=== PATIENT | male | born 1975 | race Two or more races ===

== ENCOUNTER 2016-08-19 10:37 | Emergency (ER) | payer BC ==
[2016-08-19] MEDS ORDERED: ASPIRIN 81 MG CHEWABLE TABLET PO ONE (11:03)
--- NOTE | 2016-08-19 11:10 | Emergency Department Record ---
History of Present Illness - General Chief Complaint: Chest Pain Stated Complaint: DIZZINESS,CHEST PAIN Time Seen by Provider: 08/19/16 10:49 Source: Patient Mode of Arrival: Ambulatory Limitations: No limitations - History of Present Illness Initial Comments: pt states he' just doesnt feel right'.he went to work this am and was lightheaded, felt off balance and had intermittant chest pressure that would last seconds MD Complaint: Chest pain Onset/Timin -: Week(s) Pain Location: Left chest Pain Radiation: None Quality: Heaviness, Other Consistency: Intermittent Improves With: Nothing Worsens With: Nothing Anginal Symptoms: Other Other Symptoms: Other Treatments Prior to Arrival: None - Related Data Home Medications Medication Instructions Recorded Confirmed Last Taken Metoprolol Tartrate [Lopressor] 50 mg PO DAILY 01/03/15 08/19/16 08/18/16 Pantoprazole Sodium [Protonix] 40 mg PO DAILY 01/03/15 08/19/16 08/18/16 Lisinopril [Lisinopril] 10 mg PO DAILY 08/19/16 08/19/16 08/18/16 Allergies Allergy/AdvReac Type Severity Reaction Status Date / Time No Known Drug Allergies Allergy Verified 08/19/16 10:50 Travel Screening - Travel/Exposure Within Last 30 Days Have you traveled within the last 30 days?: No Review of Systems Reviewed: No additional complaints except as noted below Constitutional: Reports: As per HPI. Denies: Chills, Fever, Malaise, Night sweats, Weakness, Weight change Eyes: Reports: As per HPI. Denies: Eye discharge, Eye pain, Photophobia, Vision change ENT: Reports: As per HPI. Denies: Congestion, Dental pain, Ear pain, Epistaxis , Hearing loss, Throat pain Respiratory: Reports: As per HPI. Denies: Cough, Dyspnea, Hemoptysis, Stridor, Wheezes Cardiovascular: Reports: As per HPI. Denies: Arrhythmia, Chest pain, Dyspnea on exertion, Edema, Murmurs, Orthopnea, Palpitations, Paroxysmal nocturnal dyspnea, Rheumatic Fever, Syncope Endocrine: Reports: As per HPI. Denies: Fatigue, Heat or cold intolerance, Polydipsia, Polyuria Gastrointestinal: Reports: As per HPI. Denies: Abdominal pain, Constipation, Diarrhea, Hematemesis, Hematochezia, Melena, Nausea, Vomiting Genitourinary: Reports: As per HPI. Denies: Dysuria, Frequency, Hematuria, Incontinence, Retention, Testicular pain, Testicular mass, Urgency Musculoskeletal: Reports: As per HPI. Denies: Arthralgia, Back pain, Gout, Joint swelling, Myalgia, Neck pain Skin: Reports: As per HPI. Denies: Bruising, Change in color, Change in hair/ nails, Lesions, Pruritus, Rash Neurological: Reports: As per HPI. Denies: Abnormal gait, Confusion, Headache, Numbness, Paresthesias, Seizure, Tingling, Tremors, Vertigo, Weakness Psychiatric: Reports: As per HPI. Denies: Anxiety, Auditory hallucinations, Depression, Homicidal thoughts, Suicidal thoughts, Visual hallucinations Hematological/Lymphatic: Reports: As per HPI. Denies: Anemia, Blood Clots, Easy bleeding, Easy bruising, Swollen glands Past Medical History - SOCIAL HISTORY Smoking Status: Never smoker Alcohol Use: Occassional Drug Use: None - RESPIRATORY Hx Respiratory Disorders: Yes Hx Sleep Apnea: Yes Hx of CPAP: Yes - CARDIOVASCULAR Hx Cardio Disorders: Yes Hx Hypertension: Yes Comment:: murmur - NEURO Hx Neuro Disorders: No - GI Hx GI Disorders: Yes Hx Reflux: Yes - Hx Genitourinary Disorders: No - ENDOCRINE Hx Endocrine Disorders: No - MUSCULOSKELETAL Hx Musculoskeletal Disorders: No - PSYCH Hx Psych Problems: No - HEMATOLOGY/ONCOLOGY Hx Hematology/Oncology Disorders: No Family Medical History Any Significant Family History?: Yes Hx Cancer: Mother Hx Diabetes: Father Hx Heart Disease: Mother, Grandparents Physical Exam - General General Appearance: Alert, Oriented x3, Cooperative, Mild distress - Head Head exam: Normal inspection - Eye Eye exam: Normal appearance, PERRL, EOMI Pupils: Normal accommodation - ENT ENT exam: Normal exam, Mucous membranes moist, Normal external ear exam, Normal orophraynx Ear exam: Normal external inspection. negative: External canal tenderness Nasal Exam: Normal inspection. negative: Discharge, Sinus tenderness Mouth exam: Normal external inspection, Tongue normal Teeth exam: Normal inspection. negative: Dental caries Throat exam: Normal inspection. negative: Tonsillar erythema, Tonsillar exudate - Neck Neck exam: Normal inspection, Full ROM. negative: Tenderness - Respiratory Respiratory exam: Normal lung sounds bilaterally. negative: Respiratory distress - Cardiovascular Cardiovascular Exam: Regular rate, Normal rhythm, Normal heart sounds - GI/Abdominal GI/Abdominal exam: Soft, Normal bowel sounds. negative: Tenderness - Rectal Rectal exam: Deferred - exam: Deferred - Extremities Extremities exam: Normal inspection, Full ROM, Normal capillary refill. negative: Tenderness - Back Back exam: Reports: Normal inspection, Full ROM. Denies: Muscle spasm, Rash noted, Tenderness - Neurological Neurological exam: Alert, CN II-XII intact, Normal gait, Oriented X3 - Psychiatric Psychiatric exam: Normal affect, Normal mood - Skin Skin exam: Dry, Intact, Normal color, Warm Course Vital Signs 08/19/16 10:42 Temperature 98.3 F Pulse Rate 71 Respiratory 20 Rate Blood Pressure 137/91 Pulse Ox 98 - Reevaluation(s) Reevaluation #1: 08/19/16 15:19 pt had no furthe chest discomfort. pelvis ct showed no fluid collection and only cellulitis. abscess has been and is still draining on its own. foot xray shows no fb and also shows cellulitis Medical Decision Making - Lab Data Result diagrams: 08/19/16 10:55 08/19/16 10:55 Disposition Disposition: Discharge Clinical Impression: Groin abscess, Cellulitis of foot excluding toe, Renal insufficiency Chest pain Qualifiers: Chest pain type: other chest pain Qualified Code(s): R07.89 - Other chest pain ; R07.8 - Other chest pain Disposition: Home, Self-Care Condition: (1) Good Instructions: Chest Pain (ED), Abscess (ED), Cellulitis (ED), Diabetic Kidney Disease (ED) Additional Instructions: recheck tomorrow. return sooner if worse. follow up with dr whitt on sunday regarding foot without fail. moist heat intermittantly. follow up with family doctor on sunday Forms: Patient Portal Access
[2016-08-19 11:14] LABS: BASO % 0.3 % (0-6); EOS % 0.5 % (0-6); GRAN % 63.9 % (47-80); HEMATOCRIT 43.6 % (42.0-52.0); MEAN CORPUSCULAR HEMOGLOBIN 27.3 pg (27-33); MEAN CORPUSCULAR HGB CONC 32.1 g/dl (32-36); MEAN PLATELET VOLUME 11.6 fl (7.4-10.4); MONO % 10.3 % (0-9); PLATELET COUNT 255 K/uL (130-400); RED BLOOD COUNT 5.13 M/uL (4.40-5.70); RED CELL DISTRIBUTION WIDTH 13.7 % (11.5-14.5); WHITE BLOOD COUNT W/O DIFF 6.6 K/uL (4.2-12.2)
[2016-08-19 11:25] LABS: ANION GAP 11.2 (7-16); BLOOD UREA NITROGEN 14 mg/dL (9-20); CARBON DIOXIDE 27.8 mmol/L (22-30); CREATINE PHOSPHOKINASE 172 U/L (55-170); CREATININE 0.9 mg/dL (0.66-1.25); EST GLOMERULAR FILTRATION RATE > 60 ml/min; GLUCOSE,RANDOM 112 mg/dL (70-110)
[2016-08-19 11:37] LABS: CKMB 2.6 ug/L (0-6)
[2016-08-19 11:43] LABS: TROPONIN I < 0.012 ng/mL (0.00-0.034)
[2016-08-19 14:38] LABS: URINE APPEARANCE CLEAR; URINE BILIRUBIN NEGATIVE (NEGATIVE); URINE BLOOD NEGATIVE (NEGATIVE); URINE COLOR YELLOW; URINE GLUCOSE (UA) NEGATIVE (NEGATIVE); URINE KETONE NEGATIVE (NEGATIVE); URINE LEUKOCYTE ESTERASE NEGATIVE (NEGATIVE); URINE NITRITE NEGATIVE (NEGATIVE); URINE PROTEIN NEGATIVE (NEGATIVE); URINE UROBILINOGEN 0.2 E.U./dL (0.20 - 1.00)
[2016-08-19 15:01] LABS: CKMB 2.3 ug/L (0-6)
[2016-08-19 15:02] LABS: TROPONIN I < 0.012 ng/mL (0.00-0.034)
--- NOTE | 2016-08-19 15:25 | Emergency Department Record ---
History of Present Illness - General Chief Complaint: Chest Pain Stated Complaint: DIZZINESS,CHEST PAIN Time Seen by Provider: 08/19/16 10:49 Source: Patient Mode of Arrival: Ambulatory Limitations: No limitations - History of Present Illness Onset/Timin -: Week(s) Pain Location: Left chest Pain Radiation: None Quality: Heaviness, Other Consistency: Intermittent Improves With: Nothing Worsens With: Nothing Anginal Symptoms: Other Other Symptoms: Other Treatments Prior to Arrival: None - Related Data Home Medications Medication Instructions Recorded Confirmed Last Taken Metoprolol Tartrate [Lopressor] 50 mg PO DAILY 01/03/15 08/19/16 08/18/16 Pantoprazole Sodium [Protonix] 40 mg PO DAILY 01/03/15 08/19/16 08/18/16 Lisinopril [Lisinopril] 10 mg PO DAILY 08/19/16 08/19/16 08/18/16 Previous Rx's Medication Instructions Recorded Amoxicillin/Potassium Clav 1 tab PO BID #20 tab 08/19/16 [Augmentin 875-125 Tablet] Allergies Allergy/AdvReac Type Severity Reaction Status Date / Time No Known Drug Allergies Allergy Verified 08/19/16 10:50 Travel Screening - Travel/Exposure Within Last 30 Days Have you traveled within the last 30 days?: No Review of Systems Constitutional: Reports: As per HPI. Denies: Chills, Fever, Malaise, Night sweats, Weakness, Weight change Eyes: Reports: As per HPI. Denies: Eye discharge, Eye pain, Photophobia, Vision change ENT: Reports: As per HPI. Denies: Congestion, Dental pain, Ear pain, Epistaxis , Hearing loss, Throat pain Respiratory: Reports: As per HPI. Denies: Cough, Dyspnea, Hemoptysis, Stridor, Wheezes Cardiovascular: Reports: As per HPI. Denies: Arrhythmia, Chest pain, Dyspnea on exertion, Edema, Murmurs, Orthopnea, Palpitations, Paroxysmal nocturnal dyspnea, Rheumatic Fever, Syncope Endocrine: Reports: As per HPI. Denies: Fatigue, Heat or cold intolerance, Polydipsia, Polyuria Gastrointestinal: Reports: As per HPI. Denies: Abdominal pain, Constipation, Diarrhea, Hematemesis, Hematochezia, Melena, Nausea, Vomiting Genitourinary: Reports: As per HPI. Denies: Dysuria, Frequency, Hematuria, Incontinence, Retention, Testicular pain, Testicular mass, Urgency Musculoskeletal: Reports: As per HPI. Denies: Arthralgia, Back pain, Gout, Joint swelling, Myalgia, Neck pain Skin: Reports: As per HPI. Denies: Bruising, Change in color, Change in hair/ nails, Lesions, Pruritus, Rash Neurological: Reports: As per HPI. Denies: Abnormal gait, Confusion, Headache, Numbness, Paresthesias, Seizure, Tingling, Tremors, Vertigo, Weakness Psychiatric: Reports: As per HPI. Denies: Anxiety, Auditory hallucinations, Depression, Homicidal thoughts, Suicidal thoughts, Visual hallucinations Hematological/Lymphatic: Reports: As per HPI. Denies: Anemia, Blood Clots, Easy bleeding, Easy bruising, Swollen glands Past Medical History - SOCIAL HISTORY Smoking Status: Never smoker Alcohol Use: Occassional Drug Use: None - RESPIRATORY Hx Respiratory Disorders: Yes Hx Sleep Apnea: Yes Hx of CPAP: Yes - CARDIOVASCULAR Hx Cardio Disorders: Yes Hx Hypertension: Yes Comment:: murmur - NEURO Hx Neuro Disorders: No - GI Hx GI Disorders: Yes Hx Reflux: Yes - Hx Genitourinary Disorders: No - ENDOCRINE Hx Endocrine Disorders: No - MUSCULOSKELETAL Hx Musculoskeletal Disorders: No - PSYCH Hx Psych Problems: No - HEMATOLOGY/ONCOLOGY Hx Hematology/Oncology Disorders: No Family Medical History Any Significant Family History?: Yes Hx Cancer: Mother Hx Diabetes: Father Hx Heart Disease: Mother, Grandparents Physical Exam - General Limitations: No limitations Course Vital Signs 08/19/16 08/19/16 08/19/16 10:42 11:42 14:22 Temperature 98.3 F Pulse Rate 71 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 ] Respiratory 20 20 20 Rate Blood Pressure 137/91 Blood Pressure 102/79 113/77 [Right Arm] Pulse Ox 98 97 99 Medical Decision Making - Lab Data Result diagrams: 08/19/16 10:55 08/19/16 10:55 Lab Results 08/19/16 08/19/16 08/19/16 Range/Units 10:55 10:55 14:30 WBC 6.6 (4.2-12.2) K/uL RBC 5.13 (4.40-5.70) M/uL Hgb 14.0 (14.0-18.0) gm/dl Hct 43.6 (42.0-52.0) % MCV 85.0 (81-97) fl MCH 27.3 (27-33) pg MCHC 32.1 (32-36) g/dl RDW 13.7 (11.5-14.5) % Plt Count 255 (130-400) K/uL MPV 11.6 H (7.4-10.4) fl Gran % 63.9 (47-80) % Lymphocytes % 25.0 (16-45) % Monocytes % 10.3 H (0-9) % Eosinophils % 0.5 (0-6) % Basophils % 0.3 (0-6) % Sodium 140 (136-145) mmol/L Potassium 4.2 (3.5-5.1) mmol/L Chloride 101 (98-107) mmol/L Carbon Dioxide 27.8 (22-30) mmol/L Anion Gap 11.2 (7-16) BUN 14 (9-20) mg/dL Creatinine 0.9 (0.66-1.25) mg/dL Estimated GFR > 60 ml/min Random Glucose 112 H (70-110) mg/dL Calcium 9.3 (8.5-10.1) mg/dL Creatine Kinase 172 H (55-170) U/L CK-MB (CK-2) 2.6 (0-6) ug/L Troponin I < 0.012 (0.00-0.034) ng/mL Urine Color Yellow Urine Appearance Clear Urine pH 6.0 (5.0-8.0) Ur Specific [place] <= 1.005 (1.002-1.030) Urine Protein Negative (NEGATIVE) Urine Glucose (UA) Negative (NEGATIVE) Urine Ketones Negative (NEGATIVE) Urine Blood Negative (NEGATIVE) Urine Nitrite Negative (NEGATIVE) Urine Bilirubin Negative (NEGATIVE) Urine Urobilinogen 0.2 (0.20 - 1.00) E.U./dL Ur Leukocyte Esterase Negative (NEGATIVE) 08/19/16 Range/Units 14:30 WBC (4.2-12.2) K/uL RBC (4.40-5.70) M/uL Hgb (14.0-18.0) gm/dl Hct (42.0-52.0) % MCV (81-97) fl MCH (27-33) pg MCHC (32-36) g/dl RDW (11.5-14.5) % Plt Count (130-400) K/uL MPV (7.4-10.4) fl Gran % (47-80) % Lymphocytes % (16-45) % Monocytes % (0-9) % Eosinophils % (0-6) % Basophils % (0-6) % Sodium (136-145) mmol/L Potassium (3.5-5.1) mmol/L Chloride (98-107) mmol/L Carbon Dioxide (22-30) mmol/L Anion Gap (7-16) BUN (9-20) mg/dL Creatinine (0.66-1.25) mg/dL Estimated GFR ml/min Random Glucose (70-110) mg/dL Calcium (8.5-10.1) mg/dL Creatine Kinase (55-170) U/L CK-MB (CK-2) 2.3 (0-6) ug/L Troponin I < 0.012 (0.00-0.034) ng/mL Urine Color Urine Appearance Urine pH (5.0-8.0) Ur Specific [place] (1.002-1.030) Urine Protein (NEGATIVE) Urine Glucose (UA) (NEGATIVE) Urine Ketones (NEGATIVE) Urine Blood (NEGATIVE) Urine Nitrite (NEGATIVE) Urine Bilirubin (NEGATIVE) Urine Urobilinogen (0.20 - 1.00) E.U./dL Ur Leukocyte Esterase (NEGATIVE) Disposition Clinical Impression: Groin abscess, Cellulitis of foot excluding toe, Renal insufficiency Chest pain Qualifiers: Chest pain type: other chest pain Qualified Code(s): R07.89 - Other chest pain Disposition: Home, Self-Care Condition: (1) Good Instructions: Chest Pain (ED), Cellulitis (ED), Abscess (ED), Diabetic Kidney Disease (ED) Additional Instructions: recheck tomorrow. return sooner if worse. follow up with dr whitt on sunday regarding foot without fail. moist heat intermittantly. follow up with family doctor on sunday Prescriptions: Amoxicillin/Potassium Clav [Augmentin 875-125 Tablet] 1 tab PO BID #20 tab Forms: Patient Portal Access
--- NOTE | 2016-08-19 15:49 | Emergency Department Record ---
History of Present Illness - General Chief Complaint: Chest Pain Stated Complaint: DIZZINESS,CHEST PAIN Time Seen by Provider: 08/19/16 10:49 Source: Patient Mode of Arrival: Ambulatory Limitations: No limitations - History of Present Illness Initial Comments: intermittent bouts of chest pain and feeling funny in head. Complaint: Chest pain Onset/Timin -: Week(s) Pain Location: Left chest Pain Radiation: None Quality: Heaviness, Other Consistency: Intermittent Improves With: Nothing Worsens With: Nothing Anginal Symptoms: Other Other Symptoms: Other Treatments Prior to Arrival: None - Related Data Home Medications Medication Instructions Recorded Confirmed Last Taken Metoprolol Tartrate [Lopressor] 50 mg PO DAILY 01/03/15 08/19/16 08/18/16 Pantoprazole Sodium [Protonix] 40 mg PO DAILY 01/03/15 08/19/16 08/18/16 Lisinopril [Lisinopril] 10 mg PO DAILY 08/19/16 08/19/16 08/18/16 Allergies Allergy/AdvReac Type Severity Reaction Status Date / Time No Known Drug Allergies Allergy Verified 08/19/16 10:50 Travel Screening - Travel/Exposure Within Last 30 Days Have you traveled within the last 30 days?: No Review of Systems Constitutional: Reports: As per HPI. Denies: Chills, Fever, Malaise, Night sweats, Weakness, Weight change Eyes: Reports: As per HPI. Denies: Eye discharge, Eye pain, Photophobia, Vision change ENT: Reports: As per HPI. Denies: Congestion, Dental pain, Ear pain, Epistaxis , Hearing loss, Throat pain Respiratory: Reports: As per HPI. Denies: Cough, Dyspnea, Hemoptysis, Stridor, Wheezes Cardiovascular: Reports: As per HPI. Denies: Arrhythmia, Chest pain, Dyspnea on exertion, Edema, Murmurs, Orthopnea, Palpitations, Paroxysmal nocturnal dyspnea, Rheumatic Fever, Syncope Endocrine: Reports: As per HPI. Denies: Fatigue, Heat or cold intolerance, Polydipsia, Polyuria Gastrointestinal: Reports: As per HPI. Denies: Abdominal pain, Constipation, Diarrhea, Hematemesis, Hematochezia, Melena, Nausea, Vomiting Genitourinary: Reports: As per HPI. Denies: Dysuria, Frequency, Hematuria, Incontinence, Retention, Testicular pain, Testicular mass, Urgency Musculoskeletal: Reports: As per HPI. Denies: Arthralgia, Back pain, Gout, Joint swelling, Myalgia, Neck pain Skin: Reports: As per HPI. Denies: Bruising, Change in color, Change in hair/ nails, Lesions, Pruritus, Rash Neurological: Reports: As per HPI. Denies: Abnormal gait, Confusion, Headache, Numbness, Paresthesias, Seizure, Tingling, Tremors, Vertigo, Weakness Psychiatric: Reports: As per HPI. Denies: Anxiety, Auditory hallucinations, Depression, Homicidal thoughts, Suicidal thoughts, Visual hallucinations Hematological/Lymphatic: Reports: As per HPI. Denies: Anemia, Blood Clots, Easy bleeding, Easy bruising, Swollen glands Past Medical History - SOCIAL HISTORY Smoking Status: Never smoker Alcohol Use: Occassional Drug Use: None - RESPIRATORY Hx Respiratory Disorders: Yes Hx Sleep Apnea: Yes Hx of CPAP: Yes - CARDIOVASCULAR Hx Cardio Disorders: Yes Hx Hypertension: Yes Comment:: murmur - NEURO Hx Neuro Disorders: No - GI Hx GI Disorders: Yes Hx Reflux: Yes - Hx Genitourinary Disorders: No - ENDOCRINE Hx Endocrine Disorders: No - MUSCULOSKELETAL Hx Musculoskeletal Disorders: No - PSYCH Hx Psych Problems: No - HEMATOLOGY/ONCOLOGY Hx Hematology/Oncology Disorders: No Family Medical History Any Significant Family History?: Yes Hx Cancer: Mother Hx Diabetes: Father Hx Heart Disease: Mother, Grandparents Physical Exam - General General Appearance: Alert, Oriented x3, Cooperative, No acute distress Limitations: No limitations - Head Head exam: Normal inspection - Eye Eye exam: Normal appearance, PERRL Pupils: Normal accommodation - ENT ENT exam: Normal exam, Mucous membranes moist, Normal external ear exam, Normal orophraynx, TM's normal bilaterally Ear exam: Normal external inspection. negative: External canal tenderness Nasal Exam: Normal inspection. negative: Discharge, Sinus tenderness Mouth exam: Normal external inspection, Tongue normal Teeth exam: Normal inspection. negative: Dental caries Throat exam: Normal inspection. negative: Tonsillar erythema, Tonsillar exudate - Neck Neck exam: Normal inspection, Full ROM. negative: Tenderness - Respiratory Respiratory exam: Normal lung sounds bilaterally. negative: Respiratory distress - Cardiovascular Cardiovascular Exam: Regular rate, Normal rhythm, Normal heart sounds - GI/Abdominal GI/Abdominal exam: Soft, Normal bowel sounds. negative: Tenderness - Rectal Rectal exam: Deferred - exam: Deferred - Extremities Extremities exam: Normal inspection, Full ROM, Normal capillary refill. negative: Tenderness - Back Back exam: Reports: Normal inspection, Full ROM. 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 neg, cxr neg Medical Decision Making - Lab Data Result diagrams: 08/19/16 10:55 08/19/16 10:55 Lab Results 08/19/16 08/19/16 08/19/16 Range/Units 10:55 10:55 14:30 WBC 6.6 (4.2-12.2) K/uL RBC 5.13 (4.40-5.70) M/uL Hgb 14.0 (14.0-18.0) gm/dl Hct 43.6 (42.0-52.0) % MCV 85.0 (81-97) fl MCH 27.3 (27-33) pg MCHC 32.1 (32-36) g/dl RDW 13.7 (11.5-14.5) % Plt Count 255 (130-400) K/uL MPV 11.6 H (7.4-10.4) fl Gran % 63.9 (47-80) % Lymphocytes % 25.0 (16-45) % Monocytes % 10.3 H (0-9) % Eosinophils % 0.5 (0-6) % Basophils % 0.3 (0-6) % Sodium 140 (136-145) mmol/L Potassium 4.2 (3.5-5.1) mmol/L Chloride 101 (98-107) mmol/L Carbon Dioxide 27.8 (22-30) mmol/L Anion Gap 11.2 (7-16) BUN 14 (9-20) mg/dL Creatinine 0.9 (0.66-1.25) mg/dL Estimated GFR > 60 ml/min Random Glucose 112 H (70-110) mg/dL Calcium 9.3 (8.5-10.1) mg/dL Creatine Kinase 172 H (55-170) U/L CK-MB (CK-2) 2.6 (0-6) ug/L Troponin I < 0.012 (0.00-0.034) ng/mL Urine Color Yellow Urine Appearance Clear Urine pH 6.0 (5.0-8.0) Ur Specific [place] <= 1.005 (1.002-1.030) Urine Protein Negative (NEGATIVE) Urine Glucose (UA) Negative (NEGATIVE) Urine Ketones Negative (NEGATIVE) Urine Blood Negative (NEGATIVE) Urine Nitrite Negative (NEGATIVE) Urine Bilirubin Negative (NEGATIVE) Urine Urobilinogen 0.2 (0.20 - 1.00) E.U./dL Ur Leukocyte Esterase Negative (NEGATIVE) 08/19/16 Range/Units 14:30 WBC (4.2-12.2) K/uL RBC (4.40-5.70) M/uL Hgb (14.0-18.0) gm/dl Hct (42.0-52.0) % MCV (81-97) fl MCH (27-33) pg MCHC (32-36) g/dl RDW (11.5-14.5) % Plt Count (130-400) K/uL MPV (7.4-10.4) fl Gran % (47-80) % Lymphocytes % (16-45) % Monocytes % (0-9) % Eosinophils % (0-6) % Basophils % (0-6) % Sodium (136-145) mmol/L Potassium (3.5-5.1) mmol/L Chloride (98-107) mmol/L Carbon Dioxide (22-30) mmol/L Anion Gap (7-16) BUN (9-20) mg/dL Creatinine (0.66-1.25) mg/dL Estimated GFR ml/min Random Glucose (70-110) mg/dL Calcium (8.5-10.1) mg/dL Creatine Kinase (55-170) U/L CK-MB (CK-2) 2.3 (0-6) ug/L Troponin I < 0.012 (0.00-0.034) ng/mL Urine Color Urine Appearance Urine pH (5.0-8.0) Ur Specific [place] (1.002-1.030) Urine Protein (NEGATIVE) Urine Glucose (UA) (NEGATIVE) Urine Ketones (NEGATIVE) Urine Blood (NEGATIVE) Urine Nitrite (NEGATIVE) Urine Bilirubin (NEGATIVE) Urine Urobilinogen (0.20 - 1.00) E.U./dL Ur Leukocyte Esterase (NEGATIVE) Disposition Disposition: Discharge Clinical Impression: Chest pain Qualifiers: Chest pain type: other chest pain Qualified Code(s): R07.89 - Other chest pain Disposition: Home, Self-Care Condition: (1) Good Instructions: Chest Pain (ED) Additional Instructions: follow up with family doctor without fail on sunday for further workup. return sooner if worse. Forms: Patient Portal Access
--- NOTE | 2016-08-20 10:48 | CT SCAN REPORT ---
EXAM: CT SCAN HEAD WO CONTRAST HISTORY: BALANCE PROBLEMS FOR ONE WEEK. DIZZINESS. RIGHT HAND DOMINANCE. TECHNIQUE: Routine noncontrast CT examination of the head is performed. COMPARISON: None. FINDINGS: The ventricles and subarachnoid spaces are normal in size. No area of abnormally increased or decreased attenuation is noted throughout the brain substance. No abnormal extraaxial fluid collection is seen. No skull fracture is identified. The visualized paranasal sinuses and mastoid air-cells are clear. The middle ear cavities, to the extent visualized, are clear. The orbits, as visualized, are unremarkable. IMPRESSION: NEGATIVE NONCONTRAST CT APPEARANCE OF THE HEAD. JOB NUMBER: [id number] MTDD
--- NOTE | 2016-08-20 10:51 | RADIOLOGY REPORT ---
EXAM: CHEST 2 VIEWS HISTORY: LEFT-SIDED CHEST PAIN. TECHNIQUE: Upright PA and lateral views of the chest. COMPARISON: Two views of the chest dated 01/03/2015. FINDINGS: The cardiomediastinal silhouette is normal in size and configuration. The pulmonary vasculature is nondilated. The lungs and pleural spaces are clear. The osseous structures are intact. IMPRESSION: NEGATIVE CHEST. JOB NUMBER: [id number] MTDD
--- NOTE | 2016-08-21 19:16 | Emergency Department Record ---
History of Present Illness - General Chief Complaint: Chest Pain Stated Complaint: DIZZINESS,CHEST PAIN Time Seen by Provider: 08/19/16 10:49 Source: Patient Mode of Arrival: Ambulatory Limitations: No limitations - History of Present Illness Onset/Timin -: Week(s) Pain Location: Left chest Pain Radiation: None Quality: Heaviness, Other Consistency: Intermittent Improves With: Nothing Worsens With: Nothing Anginal Symptoms: Other Other Symptoms: Other Treatments Prior to Arrival: None - Related Data Home Medications Medication Instructions Recorded Confirmed Last Taken Metoprolol Tartrate [Lopressor] 50 mg PO DAILY 01/03/15 08/19/16 08/18/16 Pantoprazole Sodium [Protonix] 40 mg PO DAILY 01/03/15 08/19/16 08/18/16 Lisinopril [Lisinopril] 10 mg PO DAILY 08/19/16 08/19/16 08/18/16 Allergies Allergy/AdvReac Type Severity Reaction Status Date / Time No Known Drug Allergies Allergy Verified 08/19/16 10:50 Travel Screening - Travel/Exposure Within Last 30 Days Have you traveled within the last 30 days?: No Review of Systems Constitutional: Reports: As per HPI. Denies: Chills, Fever, Malaise, Night sweats, Weakness, Weight change Eyes: Reports: As per HPI. Denies: Eye discharge, Eye pain, Photophobia, Vision change ENT: Reports: As per HPI. Denies: Congestion, Dental pain, Ear pain, Epistaxis , Hearing loss, Throat pain Respiratory: Reports: As per HPI. Denies: Cough, Dyspnea, Hemoptysis, Stridor, Wheezes Cardiovascular: Reports: As per HPI. Denies: Arrhythmia, Chest pain, Dyspnea on exertion, Edema, Murmurs, Orthopnea, Palpitations, Paroxysmal nocturnal dyspnea, Rheumatic Fever, Syncope Endocrine: Reports: As per HPI. Denies: Fatigue, Heat or cold intolerance, Polydipsia, Polyuria Gastrointestinal: Reports: As per HPI. Denies: Abdominal pain, Constipation, Diarrhea, Hematemesis, Hematochezia, Melena, Nausea, Vomiting Genitourinary: Reports: As per HPI. Denies: Dysuria, Frequency, Hematuria, Incontinence, Retention, Testicular pain, Testicular mass, Urgency Musculoskeletal: Reports: As per HPI. Denies: Arthralgia, Back pain, Gout, Joint swelling, Myalgia, Neck pain Skin: Reports: As per HPI. Denies: Bruising, Change in color, Change in hair/ nails, Lesions, Pruritus, Rash Neurological: Reports: As per HPI. Denies: Abnormal gait, Confusion, Headache, Numbness, Paresthesias, Seizure, Tingling, Tremors, Vertigo, Weakness Psychiatric: Reports: As per HPI. Denies: Anxiety, Auditory hallucinations, Depression, Homicidal thoughts, Suicidal thoughts, Visual hallucinations Hematological/Lymphatic: Reports: As per HPI. Denies: Anemia, Blood Clots, Easy bleeding, Easy bruising, Swollen glands Past Medical History - SOCIAL HISTORY Smoking Status: Never smoker Alcohol Use: Occassional Drug Use: None - RESPIRATORY Hx Respiratory Disorders: Yes Hx Sleep Apnea: Yes Hx of CPAP: Yes - CARDIOVASCULAR Hx Cardio Disorders: Yes Hx Hypertension: Yes Comment:: murmur - NEURO Hx Neuro Disorders: No - GI Hx GI Disorders: Yes Hx Reflux: Yes - Hx Genitourinary Disorders: No - ENDOCRINE Hx Endocrine Disorders: No - MUSCULOSKELETAL Hx Musculoskeletal Disorders: No - PSYCH Hx Psych Problems: No - HEMATOLOGY/ONCOLOGY Hx Hematology/Oncology Disorders: No Family Medical History Any Significant Family History?: Yes Hx Cancer: Mother Hx Diabetes: Father Hx Heart Disease: Mother, Grandparents Physical Exam - General Limitations: No limitations Course Vital Signs 08/19/16 08/19/16 08/19/16 10:42 11:42 14:22 Temperature 98.3 F Pulse Rate 71 Pulse Rate [ 81 64 Digital Strategy Manager ] Respiratory 20 20 20 Rate Blood Pressure 137/91 Blood Pressure 102/79 113/77 [Right Arm] Pulse Ox 98 97 99 08/19/16 15:58 Temperature Pulse Rate 71 Pulse Rate [ Digital Strategy Manager ] Respiratory 20 Rate Blood Pressure 123/95 Blood Pressure [Right Arm] Pulse Ox 98 - Reevaluation(s) Reevaluation #1: 08/21/16 19:15 first 2 charts were incorrectly finished for another pt on dispo page and course page. 3rd chart is finished accurately Medical Decision Making - Lab Data Result diagrams: 08/19/16 10:55 08/19/16 10:55 Lab Results 08/19/16 08/19/16 08/19/16 Range/Units 10:55 10:55 14:30 WBC 6.6 (4.2-12.2) K/uL RBC 5.13 (4.40-5.70) M/uL Hgb 14.0 (14.0-18.0) gm/dl Hct 43.6 (42.0-52.0) % MCV 85.0 (81-97) fl MCH 27.3 (27-33) pg MCHC 32.1 (32-36) g/dl RDW 13.7 (11.5-14.5) % Plt Count 255 (130-400) K/uL MPV 11.6 H (7.4-10.4) fl Gran % 63.9 (47-80) % Lymphocytes % 25.0 (16-45) % Monocytes % 10.3 H (0-9) % Eosinophils % 0.5 (0-6) % Basophils % 0.3 (0-6) % Sodium 140 (136-145) mmol/L Potassium 4.2 (3.5-5.1) mmol/L Chloride 101 (98-107) mmol/L Carbon Dioxide 27.8 (22-30) mmol/L Anion Gap 11.2 (7-16) BUN 14 (9-20) mg/dL Creatinine 0.9 (0.66-1.25) mg/dL Estimated GFR > 60 ml/min Random Glucose 112 H (70-110) mg/dL Calcium 9.3 (8.5-10.1) mg/dL Creatine Kinase 172 H (55-170) U/L CK-MB (CK-2) 2.6 (0-6) ug/L Troponin I < 0.012 (0.00-0.034) ng/mL Urine Color Yellow Urine Appearance Clear Urine pH 6.0 (5.0-8.0) Ur Specific [place] <= 1.005 (1.002-1.030) Urine Protein Negative (NEGATIVE) Urine Glucose (UA) Negative (NEGATIVE) Urine Ketones Negative (NEGATIVE) Urine Blood Negative (NEGATIVE) Urine Nitrite Negative (NEGATIVE) Urine Bilirubin Negative (NEGATIVE) Urine Urobilinogen 0.2 (0.20 - 1.00) E.U./dL Ur Leukocyte Esterase Negative (NEGATIVE) 08/19/16 Range/Units 14:30 WBC (4.2-12.2) K/uL RBC (4.40-5.70) M/uL Hgb (14.0-18.0) gm/dl Hct (42.0-52.0) % MCV (81-97) fl MCH (27-33) pg MCHC (32-36) g/dl RDW (11.5-14.5) % Plt Count (130-400) K/uL MPV (7.4-10.4) fl Gran % (47-80) % Lymphocytes % (16-45) % Monocytes % (0-9) % Eosinophils % (0-6) % Basophils % (0-6) % Sodium (136-145) mmol/L Potassium (3.5-5.1) mmol/L Chloride (98-107) mmol/L Carbon Dioxide (22-30) mmol/L Anion Gap (7-16) BUN (9-20) mg/dL Creatinine (0.66-1.25) mg/dL Estimated GFR ml/min Random Glucose (70-110) mg/dL Calcium (8.5-10.1) mg/dL Creatine Kinase (55-170) U/L CK-MB (CK-2) 2.3 (0-6) ug/L Troponin I < 0.012 (0.00-0.034) ng/mL Urine Color Urine Appearance Urine pH (5.0-8.0) Ur Specific [place] (1.002-1.030) Urine Protein (NEGATIVE) Urine Glucose (UA) (NEGATIVE) Urine Ketones (NEGATIVE) Urine Blood (NEGATIVE) Urine Nitrite (NEGATIVE) Urine Bilirubin (NEGATIVE) Urine Urobilinogen (0.20 - 1.00) E.U./dL Ur Leukocyte Esterase (NEGATIVE) Disposition Clinical Impression: Chest pain Qualifiers: Chest pain type: other chest pain Qualified Code(s): R07.89 - Other chest pain Disposition: Home, Self-Care Condition: (1) Good Instructions: Chest Pain (ED) Additional Instructions: follow up with family doctor without fail on sunday for further workup. return sooner if worse. Forms: Patient Portal Access
== END 2016-08-19 15:58 | disposition home or self-care (01) ==
LOC: ER 10:37
DX: R07.89 Other chest pain (principal); R42 Dizziness and giddiness; R26.89 Other abnormalities of gait and mobility; I10 Essential (primary) hypertension
CPT/HCPCS: 70450; 71020; 80048; 81003; 82550; 82553; 84484; 85025; 93005; 93010; 99284